=== PATIENT | male | born 1995 | race Caucasian/White ===

== ENCOUNTER → 2016-08-13 | Outpatient (REF) | payer BC | LOC: M LAB REF 16:44 | PROVIDERS: ATTEND Physician Assistant | DX: J02.9 Acute pharyngitis, unspecified (principal) ==

== ENCOUNTER → 2016-09-07 | Outpatient (CLI) | payer BC, OTHER ==
--- NOTE | 2016-09-07 14:51 | REP ---
ANKLE: Pain after sprain. PRIORS: None. FINDINGS: No acute fracture or destructive osseous lesion. The mortise is intact. Signed by Gigi Sultana DO 09/07/2016 03:23 P
== END ==
LOC: M WUC 14:05
PROVIDERS: ATTEND Physician Assistant
DX: S93.422A Sprain of deltoid ligament of left ankle, initial encounter (principal); X58.XXXA Exposure to other specified factors, initial encounter; Y92.89 Other specified places as the place of occurrence of the external cause; Y99.9 Unspecified external cause status; Y93.9 Activity, unspecified

== ENCOUNTER → 2017-06-13 | Outpatient (CLI) | payer BC, OTHER | LOC: M CLY 15:47 | DX: M54.5 Low back pain (principal) | CPT/HCPCS: 72070 ==